=== PATIENT | female | born 1975 | race Caucasian/White ===

== ENCOUNTER 2020-01-30 02:45 | Emergency (ER) | payer MEDICAID ==
[~2020-01-30] VITALS: Ht 165.1 cm; Wt 94.8 kg
[2020-01-30 02:50] VITALS: BP 161/80
--- NOTE | 2020-01-30 02:58 | NUR ---
PT TAKEN TO BED 3
--- NOTE | 2020-01-30 03:01 | NUR ---
45 Y/O FEMALE C/O RT WRIST PAIN X 4 HRS - "BUMP" ON RT WRIST, SWELLING NOTED. + NUMBNESS & TINGLING IN FINGERS & PAIN RADIATES TO RT ELBOW. 11/11 PAIN. PT DENIES TRAUMA /FALL/INJURY. PMH: DENIES NKA
--- NOTE | 2020-01-30 03:05 | NUR ---
ERMD AT BEDSIDE EVALUTING PT
[2020-01-30] MEDS ORDERED: LIDOCAINE/EPI 1% 1:100000 20 ML VIAL INJ ONE ×2 (03:20)
[2020-01-30] MEDS ORDERED: IBUPROFEN 600 MG TAB PO ONE (03:35)
[2020-01-30 03:42] VITALS: BP 161/80
== END 2020-01-30 03:42 | disposition home or self-care (01) ==
LOC: MED 02:45
DX: M67.431 Ganglion, right wrist (principal)
CPT/HCPCS: 10060; 99284; J2001; 99283

== ENCOUNTER 2021-10-27 12:14 | Emergency (ER) | payer MEDICAID ==
[~2021-10-27] VITALS: Ht 157.5 cm; Wt 86.2 kg
[2021-10-27 12:34] VITALS: BP 141/78
--- NOTE | 2021-10-27 13:44 | NUR ---
PATIENT CAME TO THE ED TO HAVE HER RIGHT HAND WHICH SHE SAYS OCCURRED LAST NIGHT.
[2021-10-27] MEDS ORDERED: AMOX-1230 PO (13:45)
[2021-10-27] MEDS ORDERED: BACI1PAC6 TP (13:45)
[2021-10-27] MEDS ORDERED: IBUP-2213 PO (13:45)
--- NOTE | 2021-10-27 13:45 | NUR ---
PATIENT SEEN BY [facility]
[2021-10-27] MEDS ORDERED: BACITRACIN OINT 500 UNITS/GM PKT TP ONE (13:50)
[2021-10-27] MEDS ORDERED: IBUPROFEN 600 MG TAB PO ONE (13:50)
--- NOTE | 2021-10-27 13:56 | NUR ---
DRESSING PLACED PER MD ORDERS, PATIENT TOLERATED WELL PREPARED FOR D/C
[2021-10-27 14:05] VITALS: BP 112/72
--- NOTE | 2021-10-27 14:07 | NUR ---
Patient discharged with v/s stable. Written and verbal after care instructions given and explained. Patient verbalized understanding. Ambulatory with to car. All questions addressed prior to discharge. Advised to follow up with PMD.
== END 2021-10-27 14:07 | disposition home or self-care (01) ==
LOC: MED 12:14
DX: S61.451A Open bite of right hand, initial encounter (principal); R03.0 Elevated blood-pressure reading, without diagnosis of hypertension; Z79.899 Other long term (current) drug therapy; W55.01XA Bitten by cat, initial encounter; Y93.89 Activity, other specified; Y92.89 Other specified places as the place of occurrence of the external cause; Y99.8 Other external cause status
CPT/HCPCS: 99283